=== PATIENT | male | born 1975 | race Caucasian/White ===

== ENCOUNTER 2018-10-18 14:37 | Emergency (ER) | payer BC ==
[~2018-10-18] VITALS: Ht 180.3 cm; Wt 93.2 kg
[2018-10-18 15:03] VITALS: Ht 180.3 cm; Wt 93.2 kg
[2018-10-18] MEDS ORDERED: PROTONIX40 MG PO (15:10)
[2018-10-18] MEDS ORDERED: VIBRAMYCIN 100100 MG PO (18:46)
[2018-10-18] MEDS ORDERED: LEVOFLOXACIN500 MG PO (18:46)
[2018-10-18 18:59] VITALS: BP 154/113
== END 2018-10-18 18:58 | disposition home or self-care (01) ==
LOC: D.ER 14:37
DX: N45.1 Epididymitis (principal)